=== PATIENT | female | born 1985 | race Caucasian/White ===

== ENCOUNTER 2016-05-16 10:38 | Emergency (ER) | payer OTHER ==
[2016-05-16 10:48] VITALS: TEMP 100; BMI 36.9
[2016-05-16] MEDS ORDERED: KETOROLAC TROMETHAMINE 30 MG/1 ML VIAL IVPUSH ONE (10:59)
[2016-05-16] MEDS ORDERED: SODIUM CHLORIDE 1,000 ML IV STA (10:59)
[2016-05-16] MEDS ORDERED: KETOROLAC TROMETHAMINE 30 MG/1 ML VIAL ONE (11:14)
[2016-05-16] MEDS ORDERED: ACETAMINOPHEN 325 MG TABLET (FP) ONE (11:23)
[2016-05-16] MEDS ORDERED: ACETAMINOPHEN 325 MG TABLET (FP) PO ONE (11:27)
[2016-05-16 11:29] LABS: EOSINOPHIL 0.1 % (0-4.5); MCH 27.8 pg (25.7-33.7); MEAN CELL VOLUME 84.3 fl (80-96); MEAN PLT VOLUME 7.5 fl (7.5-11.1); PLATELET COUNT 288 K/MM3 (134-434); RDW 16.4 % (11.6-15.6); WHITE BLOOD COUNT 6.2 K/mm3 (4.0-10.0)
[2016-05-16 11:56] LABS: ALBUMIN 4.2 g/dl (3.4-5.0); ALK PHOS 81 U/L (45-117); ANION GAP 10 (8-16); BILIRUBIN,TOTAL 0.2 mg/dL (0.2-1.0); CO2 24 mmol/L (21-32); CREATININE 0.9 mg/dL (0.55-1.02); GLUCOSE,RANDOM 99 mg/dL (74-106); SGOT/AST 18 U/L (15-37); SGPT/ALT 21 U/L (12-78); TOT PROT 7.8 g/dl (6.4-8.2)
--- NOTE | 2016-05-16 12:12 | PDOC ---
History of Present Illness - General Chief Complaint: Cold Symptoms Stated Complaint: ABD PAIN Time Seen by Provider: 05/16/16 11:03 History Source: Patient Exam Limitations: No Limitations - History of Present Illness Initial Comments: 05/16/16 11:07 31-year-old female presents to the ED with complaints of cough, headache, myalgia, nausea secondary to excessive coughing and had 2 episodes of diarrhea this morning. Patient states initial complaint started as a cough and fever since yesterday. Patient states 2 of her children with similar symptoms for the past 2 days. Patient denies medical history, recent travel, recent illness, chest pain, shortness of breath, change in urine output, or irregular menses. Timing/Duration: reports: yesterday Severity: reports: mild Possible Cause: Yes: no prior episodes Associated Symptoms: reports: cough, fever/chills, headache, muscle aches. denies: sore throat Past History - Past Medical History Allergies/Adverse Reactions: Allergies Allergy/AdvReac Type Severity Reaction Status Date / Time No Known Drug Allergies Allergy Verified 05/16/16 10:44 Home Medications: Ambulatory Orders Guaifenesin AC [Robitussin AC] 10 ml PO QID PRN #100 ml MDD 40 05/16/16 Oseltamivir Phosphate [Tamiflu -] 75 mg PO BID #10 capsule 05/16/16 Anemia: Yes Asthma: No Cancer: No Cardiac Disorders: No Diabetes: No HTN: No Seizures: No Thyroid Disease: No - Reproductive History LMP Normal: Yes Is Patient Now?: No - Psycho/Social/Smoking Cessation Hx Anxiety: No Suicidal Ideation: No Smoking History: Current some day smoker Have you smoked in the past 12 months: Yes Number of Cigarettes Smoked Daily: 2 Information on smoking cessation initiated: Yes 'Breaking Loose' booklet given: 05/16/16 Hx Alcohol Use: No Drug/Substance Use Hx: No Substance Use Type: Marijuana Hx Substance Use Treatment: No Patient Lives Alone: No Lives with/in: spouse/SO Review of Systems - Review of Systems Able to Perform ROS?: Yes Constitutional: Yes: Chills, Fever HEENTM: No: Symptoms Reported Respiratory: Yes: Cough Cardiac (ROS): No: Symptoms Reported ABD/GI: Yes: Diarrhea (2 episodes), Nausea : No: Symptoms Reported Musculoskeletal: Yes: Joint Pain (generalized) Integumentary: No: Symptoms Reported Neurological: No: Symptoms reported *Physical Exam - Vital Signs Last Vital Signs Temp Pulse Resp BP Pulse Ox 100.0 F H 119 H 20 150/97 100 05/16/16 10:46 05/16/16 10:46 05/16/16 10:46 05/16/16 10:46 05/16/16 10:46 - Physical Exam General Appearance: Yes: Nourished, Appropriately Dressed. No: Apparent Distress HEENT: positive: EOMI, NOMAN, TMs Normal, Pharynx Normal. negative: Pale Conjunctivae Neck: positive: Supple. negative: Lymphadenopathy (R), Lymphadenopathy (L) Respiratory/Chest: positive: Lungs Clear, Normal Breath Sounds. negative: Respiratory Distress, Accessory Muscle Use Cardiovascular: positive: Regular Rhythm, Tachycardia. negative: Murmur Gastrointestinal/Abdominal: positive: Soft. negative: Tenderness Integumentary: positive: Normal Color, Warm, Moist Neurologic: positive: Motor Strength 5/5 (ambulatory) ED Treatment Course - LABORATORY CBC & Chemistry Diagram: 05/16/16 11:12 05/16/16 11:12 - ADDITIONAL ORDERS Additional order review: Laboratory Results 05/16/16 11:12 Sodium 138 Potassium 3.8 Chloride 104 Carbon Dioxide 24 Anion Gap 10 BUN 11 D Creatinine 0.9 Creat Clearance w eGFR > 60 Random Glucose 99 Calcium 9.0 Total Bilirubin 0.2 D AST 18 ALT 21 Alkaline Phosphatase 81 Total Protein 7.8 D Albumin 4.2 D 05/16/16 11:12 Influenza Types A,B Antigen (IQRA) - Final Nasopharyngeal Swab - Final 05/16/16 11:12 RBC 4.59 MCV 84.3 MCHC 33.0 RDW 16.4 H MPV 7.5 Neutrophils % 82.0 D Lymphocytes % 5.3 L D Monocytes % 11.6 H Eosinophils % 0.1 D Basophils % 1.0 D - Medications Given in the ED: ED Medications Discontinued Medications Generic Name Dose Route Start Last Admin Trade Name Samuelq PRN Reason Stop Dose Admin Acetaminophen 650 mg 05/16/16 11:27 05/16/16 11:36 Tylenol - PO 05/16/16 11:28 650 mg ONCE ONE Administration Sodium Chloride 1,000 mls @ 1,000 mls/hr 05/16/16 10:59 05/16/16 11:24 Normal Saline - IV 05/16/16 11:58 1,000 mls/hr ASDIR STA Administration Ketorolac Tromethamine 30 mg 05/16/16 10:59 05/16/16 11:24 Toradol Injection - IVPUSH 05/16/16 11:00 30 mg ONCE ONE Administration Medical Decision Making - Medical Decision Making 05/16/16 11:13 Patient fever cough, myalgia arthralgia, nausea and 2 episodes of diarrhea since yesterday. Patient on exam had no abdominal tenderness but is febrile and tachycardic. Patient ordered for labs including influenza and serum . Patient also ordered for Tylenol with IV fluids . 05/16/16 12:13 Laboratory Tests 05/16/16 05/16/16 05/16/16 11:12 11:12 11:12 WBC 6.2 D Hgb 12.8 D Hct 38.7 Plt Count 288 Neutrophils % 82.0 D Sodium 138 Potassium 3.8 Chloride 104 Carbon Dioxide 24 Anion Gap 10 BUN 11 D Creatinine 0.9 Random Glucose 99 AST 18 ALT 21 Serum , Qual Pending influenza A+. We'll repeat vitals and await status 05/16/16 13:04 Laboratory Tests 05/16/16 11:12 Serum , Qual Negative Patient ordered for robitussin-AC secondary to continual coughing. discharge home with the same including tamiflu Selected Entries 05/16/16 13:13 Pulse Rate [ 111 H Left] Respiratory 16 Rate Blood Pressure 131/82 [Arm] O2 Sat by Pulse 95 Oximetry (%) Pt with coughing during vitals. No further interventions needed *DC/Admit/Observation/Transfer Diagnosis at time of Disposition: Influenza A - Discharge Dispostion Disposition: HOME Condition at time of disposition: Good - Prescriptions Prescriptions: Guaifenesin AC [Robitussin AC] 10 ml PO QID PRN #100 ml MDD 40 PRN Reason: Cough Oseltamivir Phosphate [Tamiflu -] 75 mg PO BID #10 capsule - Patient Instructions Printed Discharge Instructions: DI for Influenza -- Adult Additional Instructions: Please take Tamiflu as prescribed until completed. Please use Robitussin with codeine as needed for cough but do not operate any heavy machinery while taking this. Please drink plenty of fluids and take Motrin or Tylenol for discomfort. Return to ED if your symptoms worsen despite above recommendations.
[2016-05-16] MEDS ORDERED: guaiFENesin/CODEINE 10 ML UNIT-DOSE CUPS PO ONE (12:25)
[2016-05-16] MEDS ORDERED: guaiFENesin/CODEINE 5 ML UNIT-DOSE CUPS PO ONE (13:09)
[2016-05-16 13:14] VITALS: BP 131/82; PULSE 111
--- NOTE | 2016-05-16 16:38 | PDOC ---
*Physical Exam - Vital Signs Last Vital Signs Temp Pulse Resp BP Pulse Ox 100.0 F H 111 H 16 131/82 95 05/16/16 10:46 05/16/16 13:13 05/16/16 13:13 05/16/16 13:13 05/16/16 13:13 ED Treatment Course - LABORATORY CBC & Chemistry Diagram: 05/16/16 11:12 05/16/16 11:12 - ADDITIONAL ORDERS Additional order review: Laboratory Results 05/16/16 05/16/16 11:12 11:12 Sodium 138 Potassium 3.8 Chloride 104 Carbon Dioxide 24 Anion Gap 10 BUN 11 D Creatinine 0.9 Creat Clearance w eGFR > 60 Random Glucose 99 Calcium 9.0 Total Bilirubin 0.2 D AST 18 ALT 21 Alkaline Phosphatase 81 Total Protein 7.8 D Albumin 4.2 D Serum , Qual Negative 05/16/16 11:12 Influenza Types A,B Antigen (IQRA) - Final Nasopharyngeal Swab - Final 05/16/16 11:12 RBC 4.59 MCV 84.3 MCHC 33.0 RDW 16.4 H MPV 7.5 Neutrophils % 82.0 D Lymphocytes % 5.3 L D Monocytes % 11.6 H Eosinophils % 0.1 D Basophils % 1.0 D - RADIOLOGY Radiology Studies Ordered: Category Date Time Status CHEST X-RAY PORTABLE* [RAD] Stat Radiology 05/16/16 11:00 Completed - Medications Given in the ED: ED Medications Discontinued Medications Generic Name Dose Route Start Last Admin Trade Name Freq PRN Reason Stop Dose Admin Acetaminophen 650 mg 05/16/16 11:27 05/16/16 11:36 Tylenol - PO 05/16/16 11:28 650 mg ONCE ONE Administration Guaifenesin/Codeine Phosphate 10 ml 05/16/16 12:25 05/16/16 13:20 Robitussin Ac - PO 05/16/16 12:26 10 ml ONCE ONE Administration Sodium Chloride 1,000 mls @ 1,000 mls/hr 05/16/16 10:59 05/16/16 11:24 Normal Saline - IV 05/16/16 11:58 1,000 mls/hr ASDIR STA Administration Ketorolac Tromethamine 30 mg 05/16/16 10:59 05/16/16 11:24 Toradol Injection - IVPUSH 05/16/16 11:00 30 mg ONCE ONE Administration Medical Decision Making - Medical Decision Making 05/16/16 16:38 Pt seen by Midlevel Provider under my direct supervision Ancillary studies reviewed I agree with plan as outlined by Midlevel Provider *DC/Admit/Observation/Transfer Diagnosis at time of Disposition: Influenza A - Discharge Dispostion Disposition: HOME Condition at time of disposition: Good - Prescriptions Prescriptions: Guaifenesin AC [Robitussin AC] 10 ml PO QID PRN #100 ml MDD 40 PRN Reason: Cough Oseltamivir Phosphate [Tamiflu -] 75 mg PO BID #10 capsule - Referrals - Patient Instructions Printed Discharge Instructions: DI for Influenza -- Adult Additional Instructions: Please take Tamiflu as prescribed until completed. Please use Robitussin with codeine as needed for cough but do not operate any heavy machinery while taking this. Please drink plenty of fluids and take Motrin or Tylenol for discomfort. Return to ED if your symptoms worsen despite above recommendations. - Post Discharge Activity
== END 2016-05-16 13:21 | disposition home or self-care (01) ==
LOC: JER 10:38
PROC: 3E0337Z Introduction of Electrolytic and Water Balance Substance into Peripheral Vein, Percutaneous Approach (ICD-10-PCS; principal; 2016-05-16)
DX: J09.X2 Influenza due to identified novel influenza A virus with other respiratory manifestations (principal); F17.210 Nicotine dependence, cigarettes, uncomplicated
CPT/HCPCS: 36415; 71010-TC; 80053; 84703; 85025; 87804; 96360; 99285-25

== ENCOUNTER 2017-09-03 16:04 | Emergency (ER) | payer OTHER ==
[2017-09-03 16:19] VITALS: TEMP 99; BMI 38.3
[2017-09-03] MEDS ORDERED: IBUPROFEN 600 MG TABLET (FP) PO ONE ×2 (16:20→16:36)
--- NOTE | 2017-09-03 16:20 | PDOC ---
Rapid Medical Evaluation Chief Complaint: Vaginal Bleeding Time Seen by Provider: 09/03/17 16:15 Medical Evaluation: Allergies Allergy/AdvReac Type Severity Reaction Status Date / Time No Known Drug Allergies Allergy Verified 05/16/16 10:44 09/03/17 16:16 I have performed a brief in-person evaluation of this patient. The patient present with a chief complaint of: lower abdominal pain since yesterday, states pain monthly with menses. States pain bilateral lower abdomen, mostly to left side. Denies dysuria, took alleve today Pertinent physical exam findings: NAD unlabored breathing non tender abdomen, no cva tenderness I have ordered the following: urine preg, urinalysis analgesia The patient will proceed to the ED for further evaluation.
[2017-09-03] MEDS ORDERED: SODIUM CHLORIDE 1,000 ML IV STA (17:41)
[2017-09-03] MEDS ORDERED: morphine CARPU-JECT 2 MG/1 ML DISP.SYRIN IVPUSH ONE (17:42)
[2017-09-03 18:07] LABS: BASO % 1.1 % (0-2.0); EOS % 1.7 % (0-4.5); HEMATOCRIT 36.9 % (32.4-45.2); HEMOGLOBIN 12.3 GM/dL (10.7-15.3); LYMPH % 22.3 % (8-40); MCH 28.9 pg (25.7-33.7); MCHC 33.4 g/dl (32.0-36.0); MEAN CELL VOLUME 86.6 fl (80-96); MEAN PLT VOLUME 7.6 fl (7.5-11.1); NEUT % 66.9 % (42.8-82.8); PLATELET COUNT 371 K/MM3 (134-434); RBC 4.26 M/mm3 (3.60-5.2); RDW 15.1 % (11.6-15.6); WHITE BLOOD COUNT 9.5 K/mm3 (4.0-10.0)
[2017-09-03] MEDS ORDERED: morphine CARPU-JECT 2 MG/1 ML DISP.SYRIN ONE (18:26)
[2017-09-03 19:00] LABS: HCG,QUALITATIVE URINE NEGATIVE
[2017-09-03 19:11] LABS: URINE APPEARANCE CLOUDY; URINE COLOR AMBER; URINE GLUCOSE (UA) NEGATIVE (NEGATIVE); URINE KETONE TRACE (NEGATIVE); URINE LEUK ESTERASE NEGATIVE (NEGATIVE); URINE NITRITE NEGATIVE (NEGATIVE); URINE UROBILINOGEN 4.0 E.U/dl mg/dL (0.2-1.0)
[2017-09-03 19:14] LABS: URINE PROTEIN 2+ (NEGATIVE)
[2017-09-03 19:15] LABS: EPI CELLS RARE /HPF (FEW); URINE HYALINE CAST 10 /lpf; URINE MUCUS MANY
--- NOTE | 2017-09-03 21:11 | PDOC ---
History of Present Illness - General History Source: Patient Exam Limitations: No Limitations - History of Present Illness Initial Comments: 09/04/17 00:56 The patient is a 32 year old female, with a significant past medical history of endometriosis, who presents to the emergency department with, cramps. As per patient, she gets severe cramps whenever she is on her menstrual cycle. She reports her pain to be diffuse across the suprapubic region and worsening in the left suprapubic. She reports her cramps to worsen each month. She has been following up with her [facility] Dr. Clark who has been looking at alternative measures such as a hysterectomy. She denies recent fevers, chills, headache or dizziness. She denies recent nausea, vomit, diarrhea or constipation. She denies recent dysuria, frequency, urgency or hematuria. She denies recent chest pain or shortness of breath. Allergies: NKA Past surgical history: S/p left bunion surgery. 2 C-sections Social history: Nonsmoker. Denies EtOH use and recreational drug use. <Jeane Downey - Last Filed: 09/04/17 00:56> <Zohreh Arenas - Last Filed: 09/04/17 01:41> - General Chief Complaint: Vaginal Bleeding Stated Complaint: VAGINAL BLEEDING, ABD CRAMPS Time Seen by Provider: 09/03/17 16:15 Past History <Jeane Downey - Last Filed: 09/04/17 00:56> - Past Medical History Anemia: Yes Asthma: No Cancer: No Cardiac Disorders: No COPD: No Diabetes: No HTN: No Seizures: No Thyroid Disease: No Other medical history: fibroids, cysts - Reproductive History Is Patient Now?: No - Suicide/Smoking/Psychosocial Hx Smoking History: Current some day smoker Have you smoked in the past 12 months: Yes Number of Cigarettes Smoked Daily: 2 Information on smoking cessation initiated: Yes 'Breaking Loose' booklet given: 09/03/17 Hx Alcohol Use: No Drug/Substance Use Hx: Yes (marijuana) Substance Use Type: None, Marijuana Hx Substance Use Treatment: No <Zohreh Arenas - Last Filed: 09/04/17 01:41> - Past Medical History Allergies/Adverse Reactions: Allergies Allergy/AdvReac Type Severity Reaction Status Date / Time No Known Drug Allergies Allergy Verified 09/03/17 16:19 Home Medications: Ambulatory Orders NK [No Known Home Medication] 09/03/17 Review of Systems - Review of Systems Able to Perform ROS?: Yes Comments:: 09/04/17 00:56 CONSTITUTIONAL: Absent: fever, no chills, no fatigue EYES: Absent: visual changes ENT: Absent: ear pain, no sore throat CARDIOVASCULAR: Absent: chest pain, no palpitations RESPIRATORY: Absent: cough, no SOB GI: Absent: abdominal pain, no nausea, no vomiting, no constipation, no diarrhea GENITOURINARY: Present: Suprapubic pain. Absent: dysuria, no frequency, no hematuria MUSKULOSKELETAL: Absent: back pain, no arthralgia, no myalgia SKIN: Absent: rash NEURO: Absent: headache All Other Systems: Reviewed and Negative <Jeane Downey - Last Filed: 09/04/17 00:56> *Physical Exam - Vital Signs Last Vital Signs Temp Pulse Resp BP Pulse Ox 99 F 74 18 100/59 99 09/03/17 16:15 09/04/17 00:27 09/04/17 00:27 09/04/17 00:27 09/04/17 00:27 - Physical Exam Comments: 09/04/17 00:56 GENERAL: Mild distress. Well developed, well nourished. Awake and alert. HEENT: Normocephalic, atraumatic. PERRLA, EOMI. No conjunctival pallor. Sclera are non- icteric. Moist mucous membranes. Oropharynx is clear. NECK: Supple. Full ROM. No JVD. Carotid pulses 2+ and symmetric, without bruits. No thyromegaly. No lymphadenopathy. CARDIOVASCULAR: Regular rate and rhythm. No murmurs, rubs, or gallops. Distal pulses are 2+ and symmetric. PULMONARY: No evidence of respiratory distress. Lungs clear to auscultation bilaterally. No wheezing, rales or rhonchi. ABDOMINAL: Soft. Non-tender. Non-distended. No rebound or guarding. No organomegaly. Normoactive bowel sounds. MUSCULOSKELETAL Normal range of motion at all joints. No bony deformities or tenderness. No CVA tenderness. : Suprapubic cramping. EXTREMITIES: No cyanosis. No clubbing. No edema. No calf tenderness. SKIN: Warm and dry. Normal capillary refill. No rashes. No jaundice. NEUROLOGICAL: Alert, awake, appropriate. Cranial nerves 2-12 intact. No deficits to light touch and temperature in face, upper extremities and lower extremities. No motor deficits in the in face, upper extremities and lower extremities. Normoreflexic in the upper and lower extremities. Normal speech. Toes are down- going bilaterally. Gait is normal without ataxia. PSYCHIATRIC: Cooperative. Good eye contact. Appropriate mood and affect. <Jeane Downey - Last Filed: 09/04/17 00:56> - Vital Signs Last Vital Signs Temp Pulse Resp BP Pulse Ox 99 F 112 H 19 120/73 99 09/03/17 16:15 09/03/17 16:15 09/03/17 16:15 09/03/17 16:15 09/03/17 16:15 <Zohreh Arenas - Last Filed: 09/04/17 01:41> ED Treatment Course - LABORATORY CBC & Chemistry Diagram: 09/03/17 18:01 - ADDITIONAL ORDERS Additional order review: Laboratory Results 09/03/17 18:40 Urine Color Sondra Urine Appearance Cloudy Urine pH 5.0 Ur Specific [place] 1.042 H Urine Protein 2+ H Urine Glucose (UA) Negative Urine Ketones Trace H Urine Blood 3+ H Urine Nitrite Negative Urine Bilirubin 4.0 Urine Urobilinogen 4.0 e.u/dl H Ur Leukocyte Esterase Negative Urine WBC (Auto) 29 Urine RBC (Auto) 2654 Ur Epithelial Cells Rare Hyaline Casts 10 Urine Mucus Many Urine HCG, Qual Negative 09/03/17 18:01 RBC 4.26 MCV 86.6 MCHC 33.4 RDW 15.1 MPV 7.6 Neutrophils % 66.9 Lymphocytes % 22.3 D Monocytes % 8.0 Eosinophils % 1.7 D Basophils % 1.1 - Medications Given in the ED: ED Medications Discontinued Medications Generic Name Dose Route Start Last Admin Trade Name Freq PRN Reason Stop Dose Admin Sodium Chloride 1,000 mls @ 1,000 mls/hr 09/03/17 17:41 09/03/17 18:20 Normal Saline - IV 09/03/17 18:40 1,000 mls/hr ASDIR STA Administration Ibuprofen 600 mg 09/03/17 16:20 06/11/18 16:37 Motrin - PO 09/03/17 16:21 600 mg ONCE ONE Administration Morphine Sulfate 2 mg 09/03/17 17:42 09/03/17 18:20 Morphine Injection - IVPUSH 09/03/17 17:43 2 mg ONCE ONE Administration <[email or web address] - Last Filed: 09/04/17 00:56> - LABORATORY CBC & Chemistry Diagram: 09/03/17 18:01 - ADDITIONAL ORDERS Additional order review: Laboratory Results 09/03/17 18:40 Urine Color Sondra Urine Appearance Cloudy Urine pH 5.0 Ur Specific [place] 1.042 H Urine Protein 2+ H Urine Glucose (UA) Negative Urine Ketones Trace H Urine Blood 3+ H Urine Nitrite Negative Urine Bilirubin 4.0 Urine Urobilinogen 4.0 e.u/dl H Ur Leukocyte Esterase Negative Urine WBC (Auto) 29 Urine RBC (Auto) 2654 Ur Epithelial Cells Rare Hyaline Casts 10 Urine Mucus Many Urine HCG, Qual Negative 09/03/17 18:01 RBC 4.26 MCV 86.6 MCHC 33.4 RDW 15.1 MPV 7.6 Neutrophils % 66.9 Lymphocytes % 22.3 D Monocytes % 8.0 Eosinophils % 1.7 D Basophils % 1.1 - RADIOLOGY Radiology Studies Ordered: Category Date Time Status TRANSVAGINAL ULTRASOUND US [US] Stat Ultrasound 09/03/17 17:43 Taken - Medications Given in the ED: ED Medications Discontinued Medications Generic Name Dose Route Start Last Admin Trade Name Freq PRN Reason Stop Dose Admin Sodium Chloride 1,000 mls @ 1,000 mls/hr 09/03/17 17:41 09/03/17 18:20 Normal Saline - IV 09/03/17 18:40 1,000 mls/hr ASDIR STA Administration Ibuprofen 600 mg 09/03/17 16:20 09/03/17 16:37 Motrin - PO 09/03/17 16:21 600 mg ONCE ONE Administration Morphine Sulfate 2 mg 09/03/17 17:42 09/03/17 18:20 Morphine Injection - IVPUSH 09/03/17 17:43 2 mg ONCE ONE Administration <Zohreh Arenas - Last Filed: 09/04/17 01:41> Medical Decision Making - Medical Decision Making 09/04/17 01:40 32-year-old female with a history of pelvic pain presents with menorrhagia and left adnexal pain. No fever Negative test No urinary tract infection. Ultrasound of the pelvis did not show any torsion Due to patient's persistent pain CAT scan of the pelvis was done and there were no suspicious findings, no masses, no abscesses. No suspicious lymphadenopathy and no ruptured ovarian cysts appreciated Impression pelvic pain. Patient follow-up with sales manager prearranged funerals <Zohreh Arenas - Last Filed: 09/04/17 01:41> *DC/Admit/Observation/Transfer - Attestations Scribe Attestion: 09/04/17 00:56 Documentation prepared by Jeane Downey, acting as medical imaging technologist for Zohreh Arenas MD. <Jeane Downey - Last Filed: 09/04/17 00:56> <Zohreh Arenas - Last Filed: 09/04/17 01:41> Diagnosis at time of Disposition: Pelvic pain, Painful menstruation - Discharge Dispostion Disposition: HOME Condition at time of disposition: Stable - Referrals Referrals: Ama Barber [Primary Care Provider] - Slava Clark MD [Staff Physician] - - Patient Instructions Printed Discharge Instructions: DI for Menorrhagia, DI for Pelvic Pain Additional Instructions: please follow up with your sales manager prearranged funerals - Post Discharge Activity
[2017-09-04 00:27] VITALS: BP 100/59; PULSE 74
[2017-09-04] MEDS ORDERED: IBUPROFEN 600 MG TABLET (FP) PO ONE ×2 (00:35→00:39)
== END 2017-09-04 00:46 | disposition home or self-care (01) ==
LOC: JER 16:04
PROC: 3E033NZ Introduction of Analgesics, Hypnotics, Sedatives into Peripheral Vein, Percutaneous Approach (ICD-10-PCS; principal; 2017-09-03)
PROC: 3E0337Z Introduction of Electrolytic and Water Balance Substance into Peripheral Vein, Percutaneous Approach (ICD-10-PCS; 2017-09-03)
DX: N94.6 Dysmenorrhea, unspecified (principal); R10.2 Pelvic and perineal pain; F17.210 Nicotine dependence, cigarettes, uncomplicated
CPT/HCPCS: 36415; 74176-TC; 76830-TC; 81003; 81015; 84703; 85025; 87086; 87186; 96361; 96374; 99282-25; J7030

== ENCOUNTER 2018-04-08 14:49 | Emergency (ER) | payer OTHER ==
--- NOTE | 2018-04-08 15:01 | PDOC ---
Rapid Medical Evaluation Chief Complaint: Pain Time Seen by Provider: 04/08/18 14:56 Medical Evaluation: Allergies Allergy/AdvReac Type Severity Reaction Status Date / Time No Known Drug Allergies Allergy Verified 09/03/17 16:19 04/08/18 14:56 I have performed a brief in-person evaluation of this patient. The patient presents with a chief complaint of:abd pain x 2 days - worse with menses and thought to have Fibroids , states having every month - Pertinent physical exam findings: tearful/ pale. I have ordered the following: UA/ UcG, , US The patient will proceed to the ED for further evaluation. 04/08/18 14:59 Discharge Disposition - Diagnosis Abdominal pain - Discharge Dispostion Condition at time of disposition: Stable - Referrals Referrals: Ama Barber [Primary Care Provider] - - Patient Instructions - Post Discharge Activity
[2018-04-08 15:02] VITALS: BP 127/84; PULSE 102; TEMP 98.6; BMI 38.3
[2018-04-08] MEDS ORDERED: KETOROLAC TROMETHAMINE 30 MG/1 ML VIAL IM ONE (16:57)
[2018-04-08] MEDS ORDERED: KETOROLAC TROMETHAMINE 30 MG/1 ML VIAL ONE (17:00)
--- NOTE | 2018-04-08 17:03 | PDOC ---
History of Present Illness - General Chief Complaint: Pain Stated Complaint: MENSES PAIN Time Seen by Provider: 04/08/18 14:56 History Source: Patient Exam Limitations: No Limitations - History of Present Illness Travel History: No Initial Comments: 04/08/18 16:58 33 year old female with no significant medical or surgical history presents with cramping since start of menses 2 days ago. Patient states she suffers from dysmenorrhea. Reports having previous ultrasound that was positive for fibroids and another ultrasound that showed cyst. Treated with oral contraceptive, depo and naproxen in the past with no complete relief. States took percocet this am with some relief of pain Timing/Duration: reports: other (2 days) Quality: reports: cramping Abdominal Pain Onset Location: reports: suprapubic Pain Radiation: reports: no radiation Treatment Prior to Arrive: improves with: other (percocet) Aggravating Factors: improves with: None Alleviating Factors: improves with: None Past History - Past Medical History Allergies/Adverse Reactions: Allergies Allergy/AdvReac Type Severity Reaction Status Date / Time No Known Drug Allergies Allergy Verified 04/08/18 15:54 Home Medications: Ambulatory Orders Naproxen [Naprosyn -] 500 mg PO BID #14 tablet 04/08/18 Anemia: Yes Asthma: No Cancer: No Cardiac Disorders: No COPD: No Diabetes: No HTN: No Seizures: No Thyroid Disease: No - Suicide/Smoking/Psychosocial Hx Smoking History: Smoker current status UNK Have you smoked in the past 12 months: No Number of Cigarettes Smoked Daily: 2 Information on smoking cessation initiated: No 'Breaking Loose' booklet given: 09/03/17 Hx Alcohol Use: No Drug/Substance Use Hx: No Substance Use Type: None, Marijuana Hx Substance Use Treatment: No Review of Systems - Review of Systems Able to Perform ROS?: Yes Constitutional: No: Chills, Fever HEENTM: No: Double Vision, Hearing Loss, Throat Pain, Throat Swelling Respiratory: No: Orthopnea, Shortness of Breath, Wheezing Cardiac (ROS): No: Chest Pain, Lightheadedness, Palpitations ABD/GI: Yes: Abdominal cramping. No: Abdominal Distended, Nausea, Poor Appetite , Poor Fluid Intake : No: Dysuria Musculoskeletal: Yes: Back Pain Integumentary: No: Change in Color Neurological: No: Numbness, Paresthesia *Physical Exam - Vital Signs Last Vital Signs Temp Pulse Resp BP Pulse Ox 98.6 F 102 H 20 127/84 100 04/08/18 14:56 04/08/18 14:56 04/08/18 14:56 04/08/18 14:56 04/08/18 14:56 - Physical Exam HEENT: positive: NOMAN, TMs Normal, Pharynx Normal Neck: positive: Supple. negative: Lymphadenopathy (R), Lymphadenopathy (L) Respiratory/Chest: positive: Lungs Clear, Normal Breath Sounds Cardiovascular: positive: Regular Rhythm, Regular Rate, S1, S2 Gastrointestinal/Abdominal: positive: Normal Bowel Sounds, Other (abdominal cramping). negative: Tender, Rebound, Tenderness Extremity: positive: Normal Capillary Refill Integumentary: positive: Normal Color Moderate Sedation - Procedure Monitoring Vital Signs: Procedure Monitoring Vital Signs Temperature 98.6 F 04/08/18 14:56 Pulse Rate 102 H 04/08/18 14:56 Respiratory Rate 20 04/08/18 14:56 Blood Pressure 127/84 04/08/18 14:56 O2 Sat by Pulse Oximetry (%) 100 04/08/18 14:56 ED Treatment Course - ADDITIONAL ORDERS Additional order review: Laboratory Results 04/08/18 15:38 Urine HCG, Qual Negative Medical Decision Making - Medical Decision Making 04/08/18 17:04 33 year old female with no significant medical or surgical history presents with cramping since start of menses 2 days ago. Plan urinalysis urine ultrasound analgesia 04/08/18 18:10 Reassess states pain persist toradol with some relief ultrasound showed: adnenomyosis, nabothalin cyst and fluid in cul [place] sac Rx: percocet 2 tabs naproxen *DC/Admit/Observation/Transfer Diagnosis at time of Disposition: Dysmenorrhea Abdominal pain Qualifiers: Abdominal location: lower abdomen, unspecified Qualified Code(s): R10.30 - Lower abdominal pain, unspecified - Discharge Dispostion Disposition: HOME Condition at time of disposition: Stable - Prescriptions Prescriptions: Naproxen [Naprosyn -] 500 mg PO BID #14 tablet - Referrals Referrals: Ama Barber [Primary Care Provider] - - Patient Instructions Printed Discharge Instructions: DI for Dysmenorrhea Additional Instructions: Please use warm compress to lower abdomen Call meal packer for follow up appointment Take medication as prescribed - Post Discharge Activity Forms/Work/School Notes: Back to Work
[2018-04-08 20:14] LABS: URINE APPEARANCE CLEAR; URINE BILIRUBIN NEGATIVE (<2.0 mg/dL); URINE COLOR YELLOW; URINE GLUCOSE (UA) NEGATIVE (NEGATIVE); URINE KETONE NEGATIVE (NEGATIVE); URINE LEUK ESTERASE NEGATIVE (NEGATIVE); URINE NITRITE NEGATIVE (NEGATIVE); URINE PROTEIN NEGATIVE (NEGATIVE); URINE UROBILINOGEN NEGATIVE mg/dL (0.2-1.0)
== END 2018-04-08 18:25 | disposition home or self-care (01) ==
LOC: JER 14:49 → JERFT 14:49
PROC: 3E0233Z Introduction of Anti-inflammatory into Muscle, Percutaneous Approach (ICD-10-PCS; principal; 2018-04-08)
DX: N94.6 Dysmenorrhea, unspecified (principal); N83.202 Unspecified ovarian cyst, left side; D26.9 Other benign neoplasm of uterus, unspecified
CPT/HCPCS: 76830-TC; 81003; 84703; 87086; 96372; 99281-25